=== PATIENT | female | born 1985 | race Caucasian/White ===

== ENCOUNTER 2016-11-01 14:36 | Emergency (ER) | payer SELFPAY ==
[~2016-11-01 14:36] MED LIST: BIRTH CONTROL; BUSPIRONE HCL10 M2 PO; NO MEDS; PRENATAL VITAMI1 TAB; REGLAN10 MG PO; XANAX0.5 M1 PO
== END 2016-11-01 14:53 ==
LOC: EDMED 14:36
DX: S06.0X9A Concussion with loss of consciousness of unspecified duration, initial encounter (principal); Z88.1 Allergy status to other antibiotic agents; W22.8XXA Striking against or struck by other objects, initial encounter; Y92.009 Unspecified place in unspecified non-institutional (private) residence as the place of occurrence of the external cause